=== PATIENT | male | born 1995 | race Caucasian/White ===

== ENCOUNTER 2022-02-10 10:52 | Emergency (ER) | payer BC, SELFPAY ==
--- OUTSIDE RECORDS SUMMARY | 2022-02-10 10:54 | XMS REPORT | Continuity of Care Document ---
:1995 Author Organization [facility] t Address [address] [place] [address] Care Team Providers Name Role Phone Sadanala_U Attending Clinician Unavailable Bui_Q_WAGDNU Attending Clinician Unavailable Bui_Q Attending Clinician Unavailable Sadanala_U Admitting Clinician Unavailable Bui_Q_WAGDNU Admitting Clinician Unavailable Bui_Q Admitting Clinician Unavailable Payers Payer Name Policy Type Policy Number Effective Date Expiration Date [place] [id number] 2019 00:00:00 [place] Problems This patient has no known problems. Allergies, Adverse Reactions, Alerts Allergy Allergy Status Severity Reaction(s) Onset Inactive Treating Comm ents Source Name Type Date Date Clinician Codeine Allergy Active [place] [facility] e SULFA Allergy Active [place] [facility] (SULFONA to Family MIDE substanc Practic ANTIBIOT e e ICS) Social History Smoking Status Start Date Stop Date Source Current Some Day Smoker [facility] Medications Ordered Filled Start Stop Current Ordering Indication Dosage Frequency Signature Comments Components Source Medication Medication Date Date Medication? Clinician (SIG) Name Name Flonase Flonase No 2spray( BID Flonase Harshad kermit Allergy Allergy s) Allergy Family Relief 50 Relief 50 Relief 50 Practic mcg/actuati mcg/actuati mcg/actuat e on nasal on nasal ion nasal spray,suspe spray,suspe spray,susp nsion [place] nsion [place] ension 2 sprays 2 sprays [place] 2 twice a day twice a day sprays by by twice a intranasal intranasal day by route. route. intranasal route. Vital Signs Vital Name Observation Time Observation Value Comments Source BP Diastolic 2021-12-08 00:00:00 86 mm[Hg] [facility] Height 2021-12-08 00:00:00 70 [in_i] [facility] BMI (Body Mass 2021-12-08 00:00:00 17.5 kg/m2 [facility] Family Index) Practice BP Systolic 2021-12-08 00:00:00 122 mm[Hg] [facility] Body Weight 2021-12-08 00:00:00 122 [lb_av] [facility] BP Diastolic 2021-07-27 00:00:00 88 mm[Hg] [facility] Height 2021-07-27 00:00:00 70 [in_i] [facility] BMI (Body Mass 2021-07-27 00:00:00 17.8 kg/m2 [facility] Family Index) Practice BP Systolic 2021-07-27 00:00:00 124 mm[Hg] [facility] Body Weight 2021-07-27 00:00:00 124.4 [lb_av] [facility] Height 2020-11-23 00:00:00 70 [in_i] [facility] BMI (Body Mass 2020-11-23 00:00:00 17.6 kg/m2 [facility] Family Index) Practice BP Systolic 2020-11-23 00:00:00 113 mm[Hg] [facility] Body Weight 2020-11-23 00:00:00 123 [lb_av] [facility] Practice BP Diastolic 2020-11-23 00:00:00 79 mm[Hg] [facility] BP Diastolic 2019-02-08 00:00:00 62 mm[Hg] [facility] Height 2019-02-08 00:00:00 70 [in_i] [facility] Practice BMI (Body Mass 2019-02-08 00:00:00 17.5 kg/m2 [facility] Family Index) Practice BP Systolic 2019-02-08 00:00:00 122 mm[Hg] [facility] Practice Body Weight 2019-02-08 00:00:00 121.8 [lb_av] [facility] Practice Procedures Procedure Date / Time Performed Performing Clinician Sour e X-RAY OF KNEE 3 VIEW 2019-02-08 00:00:00 [facility] MRI, knee, w/o 2019-02-08 00:00:00 [facility] ly contrast Practice Hernia Repair [facility] Plan of Care Planned Activity Planned Date Details Comments Source Diagnostic Test 2021-12-08 rapid influenza virus Harshad kermit Family Pending 00:00:00 A + B and SARS CoV + Practic e SARS CoV 2 Ag panel, [place], upper respiratory specimen [code = rapid influenza virus A + B and SARS CoV + SARS CoV 2 Ag panel, [place], upper respiratory specimen] Diagnostic Test 2021-12-08 rapid strep group A, [facility] Family Pending 00:00:00 throat [code = rapid Practic e strep group A, throat] Encounters Start End Encounter Admission Attending Care Care Encounter Source Date/Time Date/Time Type Type Clinicians Facility Department ID 2021-12-08 2021-12-08 Outpatient Sadanala_U VFP VFP [id number] [facility] 03:31:00 03:31:00 [id number] Family Practic e 2021-12-08 2021-12-08 Outpatient Bui_Q_WAGDN VFP VFP [id number] [facility] 03:31:00 03:31:00 U [id number] Family Practic e 2021-12-08 2021-12-08 Christine Correa VF [place] - [id number] 0 [facility] 00:00:00 00:00:00 Ruddy [facility] Evette العلي MD: [id number] [facility] - Pract [address] ([place] [address] , Ph. 2021-08-14 2021-08-14 Outpatient Bui_Q VFP VFP [id number] [facility] 06:22:00 06:22:00 [id number] Family Practic e 2021-08-03 2021-08-03 Outpatient Bui_Q_WAGDN VFP VFP [id number] [facility] 01:51:00 01:51:00 U [id number] Family Practic e 2021-07-27 2021-07-27 Outpatient Bui_Q VFP VFP [id number] [facility] 11:32:00 11:32:00 [id number] Family Practic e 2021-07-27 2021-07-27 Sky Wesley VF [place] - [id number] 7 [facility] 00:00:00 00:00:00 MD Jena: Rogelio Famil y [address] [address], ([place] [address] , Ph. 2020-12-08 2020-12-08 Outpatient Bui_Q_WAGDN VFP VFP [id number] [facility] 01:26:00 01:26:00 U [id number] Family Practic e 2020-11-27 2020-11-27 Outpatient Bui_Q_WAG VFP VFP [id number] [facility] 08:11:00 08:11:00 [id number] Family Practic e 2020-11-27 2020-11-27 Outpatient Bui_Q VFP VFP [id number] [facility] 08:11:00 08:11:00 [id number] Family Practic e 2020-11-23 2020-11-23 Outpatient Bui_Q_WAG VFP VFP [id number] [facility] 10:49:00 10:49:00 [id number] Family Practic e 2020-11-23 2020-11-23 Kiranchand VFP [place] - [id number] 5 [facility] 00:00:00 00:00:00 ra [facility] - [facility] [place] MD: VM_HOU_[place] e [address] [facility] ([facility], [address], [place] [address] , Ph. 2019-02-08 2019-02-08 [facility] [place] [facility] [id number] 1 [facility] 00:00:00 00:00:00 MD Jena: [facility] Famil y [address] [facility], Practice - e [address], [facility] [address] , Ph. Results Test Description Test Time Test Comments Results Result Comments Source rapid strep group A, throat 2021-12-08 14:21:58 Test Item Value Reference Range Interpretation Comme nts Strep (test code = Strep) [facility] and SARS-CoV+SARS-CoV-2 (COVID- 19) Ag panel - Upper respiratory specimen by Rapid [id number] 14:21:22 Test Item Value Reference Range Interpretation Comments Influenza A (test code = Presumptive Negative Influenza A) Influenza B (test code = Presumptive Negative Influenza B) SARS-CoV-2 Antigen (test Presumptive Negative code = SARS-CoV-2 Antigen) [facility]
[2022-02-10] MEDS ORDERED: NA CHLORIDE 0.9% 1,000 ML ONE (11:23)
--- NOTE | 2022-02-10 11:34 | RAD REPORT ---
EXAM DESCRIPTION: CT - Head Brain Wo Cont - 02/10/2022 11:27 am CLINICAL HISTORY: Syncope COMPARISON: None. TECHNIQUE: Computed axial tomography of the head was obtained. IV contrast was not requested. All CT scans are performed using dose optimization technique as appropriate and may include automated exposure control or mA/KV adjustment according to patient size. FINDINGS: An intracranial bleed is not seen . The ventricles are normal in caliber. No significant hypodense areas within the brain visualized No extra-axial fluid collection is noted. Fluid within the sinuses/ mastoids is not seen. IMPRESSION: No acute intracranial abnormality is seen. If patient's symptoms persist MRI of the bra in would be recommended.
[2022-02-10 11:44] LABS: Absolute Lymphocytes (CBC) 1.2 K/uL (0.7-4.9); Hematocrit 41.5 % (39.6-49.0); Lymphocytes % 16.3 % (15.3-44.8); MPV 8.8 fL (7.6-11.3); RBC Red Blood Cell Count 4.59 M/uL (4.33-5.43)
--- NOTE | 2022-02-10 11:45 | RAD REPORT ---
EXAM DESCRIPTION: Kit Single View02/10/2022 11:32 am CLINICAL HISTORY: Syncope and weakness COMPARISON: none FINDINGS: The lungs are mildly hyperaerated. The lungs appear clear of acute infiltrate. The heart is normal size IMPRESSION: No acute abnormalities displayed
[2022-02-10 11:56] LABS: BUN Blood Urea Nitrogen 13 mg/dL (7-18); Bicarbonate 29 mmol/L (21-32); Glomerular Filtration Rate 121 ml/min (=/>90); Glucose Level 103 mg/dL (74-106); Potassium 3.8 mmol/L (3.5-5.1); Sodium Level 139 mmol/L (136-145)
[2022-02-10 11:58] LABS: Troponin High Sensitivity < 3.0 pg/mL (<58.9)
--- NOTE | 2022-02-10 12:43 | ER ---
Nurse's Notes [facility] Name: Justin Cason Age: 26 yrs Sex: Male : 1995 Arrival Date: 02/10/2022 Time: 10:53 Bed 8 Private MD: Diagnosis: Syncope Near Presentation: 02/10 10:53 Chief complaint: EMS states: Pt was riding in a vehicle when he began to feel ph lightheaded and experience chest pressure. VSS, EKG normal, pt reports that he did have 1 energy drink today but does not drink them daily. Pt states that pain is reproducible, states, " It feels like it's bruised." Reports recent cough. Coronavirus screen: Vaccine status: Patient reports being unvaccinated. Ebola Screen: No symptoms or risks identified at this time. Initial Sepsis Screen: Does the patient meet any 2 criteria? No. Patient's initial sepsis screen is negative. Does the patient have a suspected source of infection? No. Patient's initial sepsis screen is negative. Risk Assessment: Do you want to hurt yourself or someone else? Patient reports no desire to harm self or others. Onset of symptoms was February 10, 2022. 10:53 Method Of Arrival: EMS: [facility] 10:53 Acuity: KYLE 3 ph Triage Assessment: 10:58 General: Appears in no apparent distress. comfortable, slender, well groomed, Behavior ph is calm, cooperative, appropriate for age, Denies fever. Pain: Complains of pain in anterior aspect of left upper chest and mid-sternal area Quality of pain is described as heavy, pressure, Pain began suddenly. Neuro: Level of Consciousness is awake, alert, obeys commands, Oriented to person, place, time, situation. Cardiovascular: Reports chest pain, lightheadedness, Denies nausea, palpitations, vomiting, Capillary refill < 3 seconds in bilateral fingers Patient's skin is warm and dry. Rhythm is regular. Respiratory: Reports cough that is pain with respiration Airway is patent Respiratory effort is even, unlabored, Respiratory pattern is regular, symmetrical. GI: No signs and/or symptoms were reported involving the gastrointestinal system. Derm: Skin is intact, is healthy with good turgor, Skin is pink, warm \\T\\ dry. Musculoskeletal: Circulation, motion, and sensation intact. Range of motion: intact in all extremities. Historical: - Allergies: 10:58 Sulfa (Sulfonamide Antibiotics); ph 10:58 Codeine; ph - Home Meds: 10:58 None [Active]; ph - PMHx: 10:58 None; ph - Immunization history:: Adult Immunizations not immunized. - Social history:: Smoking status: Patient reports the use of cigarette tobacco products, denies chronic smoking, but will smoke occasionally. Screenin:00 Abuse screen: Denies threats or abuse. Denies injuries from another. Nutritional ph screening: No deficits noted. Tuberculosis screening: No symptoms or risk factors identified. Fall Risk None identified. Assessment: 11:00 General: SEE TRIAGE ASSESSMENT. ph 11:47 Reassessment: Patient appears in no apparent distress at this time. Patient and/or ph family updated on plan of care and expected duration. Pain level reassessed. Patient is alert, oriented x 3, equal unlabored respirations, skin warm/dry/pink. 13:12 Reassessment: Patient appears in no apparent distress at this time. Patient and/or ph family updated on plan of care and expected duration. Pain level reassessed. Patient is alert, oriented x 3, equal unlabored respirations, skin warm/dry/pink. Vital Signs: 10:53 BP 130 / 83; Pulse 73; Resp 16; Temp 99.2; Pulse Ox 96% on R/A; Weight 77.11 kg; Height ph 5 ft. 10 in. (177.80 cm); 11:28 BP 125 / 90; Pulse 76; Resp 18; Pulse Ox 100% ; Pain 2/10; jh6 12:30 BP 115 / 80; Pulse 72; Resp 18; Temp 98.2; Pulse Ox 99% on R/A; ph 10:53 Body Mass Index 24.39 (77.11 kg, 177.80 cm) ph ED Course: 10:53 Patient arrived in ED. ph 10:53 Leon Mena MD is Attending Physician. kdr 10:58 Triage completed. ph 10:58 Arm band placed on Patient placed in an exam room, on a stretcher, on monitoring manager, ph on pulse oximetry. 11:00 Patient has correct armband on for positive identification. Bed in low position. Call ph light in reach. Side rails up X 1. Client placed on continuous cardiac and pulse oximetry monitoring. NIBP monitoring applied. 11:00 Patient maintains SpO2 saturation greater than 95% on room air. ph 11:26 Baylee Westbrook, RN is Primary Nurse. ph 11:[address] via wheelchair. jh6 11:28 CT Head Brain wo Cont In Process Unspecified. EDMS 11:34 XRAY Chest (1 view) In Process Unspecified. EDMS 13:13 No provider procedures requiring assistance completed. IV discontinued, intact, ph bleeding controlled, No redness/swelling at site. Pressure dressing applied, 20 G to LAC per EMS. Administered Medications: 11:20 Drug: NS 0.9% 1000 ml Route: IV; Rate: 1 bolus; Site: left antecubital; [facility] 13:00 Follow up: Response: No adverse reaction; IV Status: Completed infusion; IV Intake: ph 1000ml Medication: 11:00 VIS not applicable for this client. ph Intake: 13:00 IV: 1000ml; Total: 1000ml. ph Outcome: 12:42 Discharge ordered by . [facility] 13:14 Discharged to home ambulatory, with significant other. ph 13:14 Condition: good 13:14 Discharge instructions given to patient, Instructed on discharge instructions, follow up and referral plans. Demonstrated understanding of instructions, follow-up care. 13:14 Patient left the ED. ph Signatures: Dispatcher [employer] Loen Cornelius MD MD kdr Hall, Patricia, RN RN Yohana Zarate RN RN [facility]
--- NOTE | 2022-02-10 12:43 | EDPHYS ---
Physician Documentation [facility] Name: Justin Cason Age: 26 yrs Sex: Male : 1995 Arrival Date: 02/10/2022 Time: 10:53 Bed 8 Private MD: ED Physician Leon Mena HPI: 02/10 13:06 This 26 yrs old Male presents to ER via EMS with complaints of Dizziness, Chest Pain. kdr 13:06 Lightheaded and dizziness and slight chest discomfort.. kdr 13:07 Onset: The symptoms/episode began/occurred suddenly, just prior to arrival. Severity of kdr symptoms: At their worst the symptoms were moderate in the emergency department the symptoms have improved moderately. The patient has not experienced similar symptoms in the past. The patient has not recently seen a physician. Patient was at work this morning when he became lightheaded and dizzy with slight chest discomfort. He denies any change in his morning routine prior to the episode. He is otherwise been healthy in the last few weeks without any other precipitating events. He has not had episodes like this before. Currently he is nontoxic-appearing and not requiring any emergent intervention. Historical: - Allergies: 10:58 Sulfa (Sulfonamide Antibiotics); ph 10:58 Codeine; ph - Home Meds: 10:58 None [Active]; ph - PMHx: 10:58 None; ph - Immunization history:: Adult Immunizations not immunized. - Social history:: Smoking status: Patient reports the use of cigarette tobacco products, denies chronic smoking, but will smoke occasionally. ROS: 13:07 Constitutional: Negative for fever, chills, and weight loss, Eyes: Negative for injury, kdr pain, redness, and discharge, ENT: Negative for injury, pain, and discharge, Neck: Negative for injury, pain, and swelling, Respiratory: Negative for shortness of breath, cough, wheezing, and pleuritic chest pain, Abdomen/GI: Negative for abdominal pain, nausea, vomiting, diarrhea, and constipation, Back: Negative for injury and pain, : Negative for injury, bleeding, discharge, and swelling, MS/Extremity: Negative for injury and deformity, Skin: Negative for injury, rash, and discoloration, Psych: Negative for depression, anxiety, suicide ideation, homicidal ideation, and hallucinations, Allergy/Immunology: Negative for hives, rash, and allergies, Endocrine: Negative for neck swelling, polydipsia, polyuria, polyphagia, and marked weight changes, Hematologic/Lymphatic: Negative for swollen nodes, abnormal bleeding, and unusual bruising. 13:07 Cardiovascular: Positive for chest pain, of the mid-sternal area. 13:07 Neuro: Positive for dizziness. Exam: 13:07 Constitutional: This is a well developed, well nourished patient who is awake, alert, kdr and in no acute distress. Head/Face: Normocephalic, atraumatic. Eyes: Pupils equal round and reactive to light, extra-ocular motions intact. Lids and lashes normal. Conjunctiva and sclera are non-icteric and not injected. Cornea within normal limits. Periorbital areas with no swelling, redness, or edema. Neck: Trachea midline, no thyromegaly or masses palpated, and no cervical lymphadenopathy. Supple, full range of motion without nuchal rigidity, or vertebral point tenderness. No Meningismus. Chest/axilla: Normal chest wall appearance and motion. Nontender with no deformity. No lesions are appreciated. Cardiovascular: Regular rate and rhythm with a normal S1 and S2. No gallops, murmurs, or rubs. Normal PMI, no JVD. No pulse deficits. Respiratory: Lungs have equal breath sounds bilaterally, clear to auscultation and percussion. No rales, rhonchi or wheezes noted. No increased work of breathing, no retractions or nasal flaring. Abdomen/GI: Soft, non-tender, with normal bowel sounds. No distension or tympany. No guarding or rebound. No evidence of tenderness throughout. Back: No spinal tenderness. No costovertebral tenderness. Full range of motion. Skin: Warm, dry with normal turgor. Normal color with no rashes, no lesions, and no evidence of cellulitis. MS/ Extremity: Pulses equal, no cyanosis. Neurovascular intact. Full, normal range of motion. Neuro: Awake and alert, GCS 15, oriented to person, place, time, and situation. Cranial nerves II-XII grossly intact. Motor strength 5/5 in all extremities. Sensory grossly intact. Cerebellar exam normal. Normal gait. Psych: Awake, alert, with orientation to person, place and time. Behavior, mood, and affect are within normal limits. Vital Signs: 10:53 BP 130 / 83; Pulse 73; Resp 16; Temp 99.2; Pulse Ox 96% on R/A; Weight 77.11 kg; Height ph 5 ft. 10 in. (177.80 cm); 11:28 BP 125 / 90; Pulse 76; Resp 18; Pulse Ox 100% ; Pain 2/10; jh6 12:30 BP 115 / 80; Pulse 72; Resp 18; Temp 98.2; Pulse Ox 99% on R/A; ph 10:53 Body Mass Index 24.39 (77.11 kg, 177.80 cm) ph MDM: 12:42 Patient medically screened. kdr 13:07 Data reviewed: vital signs, nurses notes, lab test result(s), EKG, radiologic studies. kdr Counseling: I had a detailed discussion with the patient and/or guardian regarding: the historical points, exam findings, and any diagnostic results supporting the discharge/admit diagnosis, lab results, radiology results, the need for outpatient follow up. ED course: Patient was feeling much better upon arrival. He continued to trend and improve. I was discharged he was more or less back to his baseline. He had no further episodes. He was happy with the care provided the plan for discharge and follow-up.. 02/10 11:15 Order name: Basic Metabolic Panel; Complete Time: 12: [facility] 02/10 11:15 Order name: CBC with Diff; Complete Time: 12: [facility] 02/10 11:15 Order name: Troponin HS; Complete Time: 12:34 [facility] 02/10 11:15 Order name: XRAY Chest (1 view); Complete Time: 12: [facility] 02/10 11:16 Order name: CT Head Brain wo Cont; Complete Time: 12: [facility] 02/10 11:15 Order name: EKG; Complete Time: 11:16 [facility] 02/10 11:15 Order name: Cardiac monitoring; Complete Time: 11:16 [facility] 02/10 11:15 Order name: EKG - Nurse/Tech; Complete Time: 11: [facility] 02/10 11:15 Order name: IV Saline Lock; Complete Time: 11:16 [facility] 02/10 11:15 Order name: Labs collected and sent; Complete Time: 11: [facility] 02/10 11:15 Order name: O2 Per Protocol; Complete Time: 11: [facility] 02/10 11:15 Order name: O2 Sat Monitoring; Complete Time: 11:16 kdr Administered Medications: 11:20 Drug: NS 0.9% 1000 ml Route: IV; Rate: 1 bolus; Site: left antecubital; jh6 13:00 Follow up: Response: No adverse reaction; IV Status: Completed infusion; IV Intake: ph 1000ml Disposition Summary: 02/10/22 12:42 Discharge Ordered Location: Home kdr Problem: new kdr Symptoms: have improved kdr Condition: Stable kdr Diagnosis - Syncope Near kdr Followup: kdr - With: Private Physician - When: 2 - 3 days - Reason: If symptoms return, Further diagnostic work-up, Recheck today's complaints, Continuance of care, Re-evaluation by your physician Discharge Instructions: - Discharge Summary Sheet kdr - Near-Syncope, [id number] kdr Forms: - Medication Reconciliation Form kdr - Thank You Letter kdr - Work release form jh6 Signatures: Dispatcher [employer] Leon Cornelius MD MD kdr Hall, Patricia RN SARIAH Yohana Zarate RN RN jh6
[2022-02-10 13:26] VITALS: BP 115/80; TEMP 98.2; O2SAT 99
--- NOTE | 2022-02-12 17:34 | EKG ---
Test Date: 2022-02-10 Test Time: 10:50:24 Senior Research Project Manager: YOSEF MEASUREMENT RESULTS: Intervals: Rate: 70 RI: 118 QRSD: 94 QT: 384 QTc: 414 [place]: P: 77 RI: 118 QRS: 88 T: 68 INTERPRETIVE STATEMENTS: Normal sinus rhythm Normal ECG No previous ECG available for comparison Electronically Signed On 02-12-22 17:30:19 CDT by Rafael Steel
== END 2022-02-10 13:14 | disposition home or self-care (01) ==
LOC: ER 10:52
DX: R55 Syncope and collapse (principal); F17.210 Nicotine dependence, cigarettes, uncomplicated; Z88.2 Allergy status to sulfonamides; Z88.5 Allergy status to narcotic agent
CPT/HCPCS: 36415; 70450; 71045; 80048; 84484; 85025; 93005; 96360; 96361; 99285; J7030

== ENCOUNTER 2022-06-20 06:40 | Emergency (ER) | payer BC ==
--- OUTSIDE RECORDS SUMMARY | 2022-06-20 06:44 | XMS REPORT | Continuity of Care Document ---
:1995 Author Organization [facility] t Address [address] [place] [address] Care Team Providers Name Role Phone Sadanala_U Attending Clinician Unavailable Bui_Q_WAGDNU Attending Clinician Unavailable Bui_Q Attending Clinician Unavailable Sadanala_U Admitting Clinician Unavailable Bui_Q_WAGDNU Admitting Clinician Unavailable Bui_Q Admitting Clinician Unavailable Payers Payer Name Policy Type Policy Number Effective Date Expiration Date [place] [employer] [id number] 2019 00:00:00 [place] Problems This patient has no known problems. Allergies, Adverse Reactions, Alerts Allergy Allergy Status Severity Reaction(s) Onset Inactive Treating Comm ents Source Name Type Date Date Clinician Codeine Allergy Active [place] [facility] e SULFA Allergy Active Edema [facility] (SULFONA to Family MIDE substanc Practic ANTIBIOT e e ICS) Social History Smoking Status Start Date Stop Date Source Current Some Day Smoker [facility] Medications Ordered Filled Start Stop Current Ordering Indication Dosage Frequency Signature Comments Components Source Medication Medication Date Date Medication? Clinician (SIG) Name Name Flonase Flonase No 2spray( BID Flonase Harshad kermit Allergy Allergy s) Allergy Family Relief 50 Relief 50 Relief 50 Practic mcg/actuati mcg/actuati mcg/actuat e on nasal on nasal ion nasal spray,suspe spray,suspe spray,susp nsion Bacova nsion Bacova ension 2 sprays 2 sprays Bacova 2 twice a day twice a day sprays by by twice a intranasal intranasal day by route. route. intranasal route. Vital Signs Vital Name Observation Time Observation Value Comments Source BP Diastolic 2021-12-08 00:00:00 86 mm[Hg] [facility] Height 2021-12-08 00:00:00 70 [in_i] [facility] BMI (Body Mass 2021-12-08 00:00:00 17.5 kg/m2 [facility] Index) Practice BP Systolic 2021-12-08 00:00:00 122 mm[Hg] [facility] Body Weight 2021-12-08 00:00:00 122 [lb_av] [facility] BP Diastolic 2021-07-27 00:00:00 88 mm[Hg] [facility] Height 2021-07-27 00:00:00 70 [in_i] [facility] BMI (Body Mass 2021-07-27 00:00:00 17.8 kg/m2 [facility] Practice BP Systolic 2021-07-27 00:00:00 124 mm[Hg] [facility] Body Weight 2021-07-27 00:00:00 124.4 [lb_av] [facility] Height 2020-11-23 00:00:00 70 [in_i] [facility] BMI (Body Mass 2020-11-23 00:00:00 17.6 kg/m2 [facility] Practice BP Systolic 2020-11-23 00:00:00 113 mm[Hg] [facility] Body Weight 2020-11-23 00:00:00 123 [lb_av] [facility] BP Diastolic 2020-11-23 00:00:00 79 mm[Hg] [facility] BP Diastolic 2019-02-08 00:00:00 62 mm[Hg] [facility] Height 2019-02-08 00:00:00 70 [in_i] [facility] BMI (Body Mass 2019-02-08 00:00:00 17.5 kg/m2 [facility] Practice BP Systolic 2019-02-08 00:00:00 122 mm[Hg] [facility] Body Weight 2019-02-08 00:00:00 121.8 [lb_av] [facility] Procedures Procedure Date / Time Performed Performing Clinician [facility] e X-RAY OF KNEE 3 VIEW 2019-02-08 00:00:00 [facility] MRI, knee, w/o 2019-02-08 00:00:00 [facility] Fam ly contrast Practice Hernia Repair [facility] Plan of Care Planned Activity Planned Date [...] 2021-12-08 Outpatient Sadanala_U VFP VFP [id number] [facility] 03:31:00 03:31:00 [id number] Family Practic e 2021-12-08 2021-12-08 Outpatient Bui_Q_WAGDN VFP VFP [id number] [facility] 03:31:00 03:31:00 U [id number] Family Practic e 2021-12-08 2021-12-08 Christine Correa VF [place] - [id number] [facility] 00:00:00 00:00:00 Rogelio Fox MD: [id number] [address], ([place] [address] , Ph. 2021-08-14 2021-08-14 Outpatient Bui_Q VFP VFP [id number] [facility] 06:22:00 06:22:00 [id number] Family Practic e 2021-08-03 2021-08-03 Outpatient Bui_Q_WAGDN VFP VFP [id number] [facility] 01:51:00 01:51:00 U [id number] Family Practic e 2021-07-27 2021-07-27 Outpatient Bui_Q VFP VFP [id number] [facility] 11:32:00 11:32:00 [id number] Family Practic e 2021-07-27 2021-07-27 Sky Wesley [facility] [place] - [id number] [facility] 00:00:00 00:00:00 MD Jena: Rogelio Famil y [address] [address], ([facility]) [place] [address] , Ph. 2020-12-08 2020-12-08 Outpatient Bui_Q_WAGDN VF VF [id number] [facility] 01:26:00 01:26:00 U [id number] Family Practic e 2020-11-27 2020-11-27 Outpatient Bui_Q_WAG VFP VFP [id number] [facility] 08:11:00 08:11:00 [id number] Family Practic e 2020-11-27 2020-11-27 Outpatient Bui_Q VFP VFP [id number] [facility] 08:11:00 08:11:00 [id number] Family Practic e 2020-11-23 2020-11-23 Outpatient Bui_Q_WAG VFP VF [id number] [facility] 10:49:00 10:49:00 [id number] Family Practic e 2020-11-23 2020-11-23 Kiranchand [facility] [place] - [id number] [facility] 00:00:00 00:00:[address] [facility] Medical - [place] MD: [facility] e [address] [facility], [address] [address] , Ph. 2019-02-08 2019-02-08 [facility] [place] [facility] [id number] [facility] 00:00:00 00:00:00 MD Jena: [facility] Famil y [address] [facility][Note 3], Practice - e [address], [facility] [address] , Ph. Results Test Description Test Time Test Comments Results Result Comments Source rapid strep group A, throat 2021-12-08 14:21:58 Test Item Value Reference Range Interpretation Comme nts Strep (test code = Strep) negative [facility] PracticeInfluenza virus A and B and SARS-CoV+SARS-CoV-2 (COVID- 19) Ag panel - Upper respiratory specimen by Rapid [id number] 14:21:22 Test Item Value Reference Range Interpretation Comments Influenza A (test code = Presumptive Negative Influenza A) Influenza B (test code = Presumptive Negative Influenza B) SARS-CoV-2 Antigen (test Presumptive Negative code = SARS-CoV-2 Antigen) [facility]
[2022-06-20] MEDS ORDERED: ASPIRIN 81 MG CHEWABLE TABLET ONE (07:17)
[2022-06-20] MEDS ORDERED: FAMOTIDINE 20 MG/2 ML VIAL IV ONE (07:17)
[2022-06-20] MEDS ORDERED: NA CHLORIDE 0.9% 500 ML ONE (07:17)
[2022-06-20 07:32] LABS: Absolute Lymphocytes (CBC) 1.6 K/uL (0.7-4.9); Hematocrit 41.1 % (39.6-49.0); Lymphocytes % 42.7 % (15.3-44.8); MCV 90.1 fL (80-100); MPV 8.4 fL (7.6-11.3); RBC Red Blood Cell Count 4.56 M/uL (4.33-5.43)
[2022-06-20 07:37] LABS: Protime INR 1.2
[2022-06-20 07:51] LABS: Bilirubin Direct 0.3 mg/dL (0-0.2); Bilirubin Total 1.2 mg/dL (0.2-1.0); Magnesium 2.2 mg/dL (1.8-2.4); Potassium 4.5 mmol/L (3.5-5.1); Protein, Total 7.1 g/dL (6.4-8.2); Troponin High Sensitivity 3.9 pg/mL (<58.9)
--- NOTE | 2022-06-20 08:17 | RAD REPORT ---
EXAM DESCRIPTION: Kit Single View06/20/2022 8:11 am CLINICAL HISTORY: Chest pain COMPARISON: January 2021 FINDINGS: The lungs appear clear of acute infiltrate. The heart is normal size IMPRESSION: No acute abnormalities displayed
[2022-06-20 09:07] LABS: Blood Morphology Comment NOT SEEN (NOT SEEN); Platelet Estimate ADEQ
[2022-06-20 09:45] LABS: Barbiturates NEGATIVE (NEGATIVE); Benzodiazepines NEGATIVE (NEGATIVE); Cocaine NEGATIVE (NEGATIVE); METHAMPHETAM NEGATIVE (NEGATIVE); Methadone NEGATIVE (NEGATIVE); Opiates NEGATIVE (NEGATIVE); Phencyclidine NEGATIVE (NEGATIVE); THC Cannibis NEGATIVE (NEGATIVE)
--- NOTE | 2022-06-20 09:45 | ER ---
Nurse's Notes [facility] Name: Justin Cason Age: 27 yrs Sex: Male : 1995 Arrival Date: 06/20/2022 Time: 06:43 Bed 5 Private MD: Diagnosis: Chest pain, unspecified Presentation: 06/20 06:55 Chief complaint: Patient states: "For the past three days I have been having chest tw5 pain. It comes and goes. Today I was driving to work when it started. It feels like someone is sitting on my chest, then I feel a jolt of electricity and my hands go numb.". Coronavirus screen: Vaccine status: Patient reports being unvaccinated. Ebola Screen: Patient negative for fever greater than or equal to 101.5 degrees Fahrenheit, and additional compatible Ebola Virus Disease symptoms Patient denies exposure to infectious person. Patient denies travel to an Ebola-affected area in the 21 days before illness onset. Initial Sepsis Screen: Does the patient meet any 2 criteria? No. Patient's initial sepsis screen is negative. Does the patient have a suspected source of infection? No. Patient's initial sepsis screen is negative. Risk Assessment: Do you want to hurt yourself or someone else? Patient reports no desire to harm self or others. Onset of symptoms was June 20, 2022. 06:55 Method Of Arrival: Ambulatory tw5 06:55 Acuity: KYLE 2 tw5 Triage Assessment: 06:58 General: Appears in no apparent distress. slender, Behavior is calm, cooperative, tw5 appropriate for age. Pain: Complains of pain in chest Pain currently is 6 out of 10 on a pain scale. Historical: - Allergies: 06:58 Codeine; tw5 06:58 Sulfa (Sulfonamide Antibiotics); tw5 - Home Meds: 06:58 None [Active]; tw5 - PMHx: 06:58 None; tw5 - PSHx: 06:58 None; tw5 - Immunization history:: Flu vaccine is not up to date. - Social history:: Smoking status: Patient reports the use of cigarette tobacco products, denies chronic smoking, but will smoke occasionally. - Family history:: not pertinent. Screenin:42 Abuse screen: Denies threats or abuse. Denies injuries from another. Nutritional kc6 screening: No deficits noted. Tuberculosis screening: No symptoms or risk factors identified. Fall Risk No fall in past 12 months (0 pts). No secondary diagnosis (0 pts). IV access (20 points). Ambulatory Aid- None/Bed Rest/Nurse Assist (0 pts). Gait- Normal/Bed Rest/Wheelchair (0 pts) Mental Status- Oriented to own ability (0 pts). Total Alanis Fall Scale indicates No Risk (0-24 pts). Assessment: 07:35 General: Appears in no apparent distress. comfortable, Behavior is calm, cooperative, kc6 appropriate for age. Pain: Pain does not radiate. Pain currently is 2 out of 10 on a pain scale. Quality of pain is described as heavy, pressure, Pain began 2-3 days ago. Is continuous, Alleviated by exercise, Aggravated by rest Also complains of nausea, shortness of breath. Neuro: Garcia Agitation-Sedation Scale (RASS): 0 - Alert and Calm Level of Consciousness is awake, alert, obeys commands, Oriented to person, place, time, situation, Appropriate for age. Cardiovascular: Heart tones S1 S2 present Capillary refill < 3 seconds Rhythm is sinus rhythm. Respiratory: Airway is patent Trachea midline Respiratory effort is even, unlabored, Respiratory pattern is regular, symmetrical, Breath sounds are clear bilaterally. GI: Abdomen is flat, non-distended, Reports nausea. : No signs and/or symptoms were reported regarding the genitourinary system. EENT: No signs and/or symptoms were reported regarding the EENT system. Derm: No signs and/or symptoms reported regarding the dermatologic system. Skin is intact, Skin is pink, warm \\T\\ dry. Musculoskeletal: No signs and/or symptoms reported regarding the musculoskeletal system. Circulation, motion, and sensation intact. Capillary refill < 3 seconds, Range of motion: intact in all extremities. 08:52 Reassessment: Patient appears in no apparent distress at this time. No changes from kc6 previously documented assessment. Patient and/or family updated on plan of care and expected duration. Pain level reassessed. Patient is alert, oriented x 3, equal unlabored respirations, skin warm/dry/pink. Patient denies pain at this time. 09:46 Reassessment: Patient appears in no apparent distress at this time. No changes from kc6 previously documented assessment. Patient and/or family updated on plan of care and expected duration. Pain level reassessed. Patient is alert, oriented x 3, equal unlabored respirations, skin warm/dry/pink. Patient denies pain at this time. Vital Signs: 06:55 BP 121 / 84; Pulse 64; Resp 14; Temp 97.8; Pulse Ox 100% ; Weight 58.97 kg; Height 5 tw5 ft. 10 in. (177.80 cm); Pain 6/10; 07:41 BP 111 / 80; Pulse 60; Resp 16 S; Pulse Ox 100% on R/A; Pain 2/10; kc6 08:52 BP 128 / 91; Pulse 67; Resp 21 S; Temp 98.4(O); Pulse Ox 100% on R/A; Pain 0/10; kc6 09:46 BP 116 / 88; Pulse 65; Resp 17 S; Pulse Ox 100% on R/A; Pain 0/10; kc6 06:55 Body Mass Index 18.65 (58.97 kg, 177.80 cm) tw5 ED Course: 06:43 Patient arrived in ED. bp1 06:54 Mikhail Garcia MD is Attending Physician. shani 06:58 Triage completed. tw5 06:58 Arm band placed on. tw5 07:07 Veena Tilley, SARIAH is Primary Nurse. kc6 07:15 Inserted saline lock: 20 gauge in left antecubital area, using aseptic technique. Blood jd3 collected. 07:15 EKG done, by ED staff, reviewed by Leon Mena MD. jd3 07:17 Attending Physician role handed off by Mikhail Garcia MD kdr 07:17 Leon Mena MD is Attending Physician. kdr 07:34 Lipase Sent. kc6 07:34 Basic Metabolic Panel Sent. kc6 07:34 CBC with Diff Sent. kc6 07:34 LFT's Sent. kc6 07:34 Magnesium Sent. kc6 07:34 NT PRO-BNP Sent. kc6 07:34 PT-INR Sent. kc6 07:34 Troponin HS Sent. kc6 08:13 XRAY Chest (1 view) In Process Unspecified. EDMS 10:03 No provider procedures requiring assistance completed. IV discontinued, intact, kc6 bleeding controlled, No redness/swelling at site. Pressure dressing applied. Patient maintains SpO2 saturation greater than 95% on room air. 10:04 Patient has correct armband on for positive identification. Placed in gown. Bed in low kc6 position. Call light in reach. Client placed on continuous cardiac and pulse oximetry monitoring. NIBP monitoring applied. Administered Medications: 07:29 Drug: Pepcid (famotidine) 20 mg Route: IVP; Site: left antecubital; kc6 08:29 Follow up: Response: No adverse reaction kc6 07:34 Drug: Aspirin Chewable Tablet 324 mg Route: PO; kc6 08:34 Follow up: Response: No adverse reaction kc6 07:35 Drug: NS 0.9% 500 ml Route: IV; Rate: bolus; Site: left antecubital; kc6 08:35 Follow up: Response: No adverse reaction; IV Status: Completed infusion; IV Intake: kc6 500ml Medication: 10:04 VIS not applicable for this client. kc6 Intake: 08:35 IV: 500ml; Total: 500ml. kc6 Outcome: 09:44 Discharge ordered by . kdr 10:03 Discharged to home ambulatory. kc6 10:03 Condition: stable 10:03 Discharge instructions given to patient, Instructed on discharge instructions, follow up and referral plans. Demonstrated understanding of instructions, follow-up care. 10:04 Patient left the ED. kc6 Signatures: Dispatcher [employer] EDMS Mikhail Garcia MD MD cha Rittger, Kevin, MD MD kdr Davies, Jonathon, RN RN jd3 Kati Damon Tiffany tw5 Veena Tilley, SARIAH RN kc6 Corrections: (The following items were deleted from the chart) 07:55 07:35 Cardiovascular: Heart tones S1 S2 present Capillary refill < 3 seconds kc6 kc6 09:47 09:47 Response: No adverse reaction kc6 kc6
--- NOTE | 2022-06-20 09:45 | EDPHYS ---
Physician Documentation [facility] Name: Justin Cason Age: 27 yrs Sex: Male : 1995 Arrival Date: 06/20/2022 Time: 06:43 Bed 5 Private MD: ED Physician Leon Mena HPI: 06/20 07:00 This 27 yrs old Male presents to ER via Ambulatory with complaints of Chest shani Pain. 07:00 The patient or guardian reports chest pain that is located primarily in the substernal shani area, anterior chest wall, bilaterally. The pain does not radiate. Associated signs and symptoms: The patient has no apparent associated signs or symptoms. The chest pain is described as a heaviness, a pressure. Duration: The patient or guardian reports multiple episodes, that wax and wane, with no pattern. Modifying factors: The symptoms are alleviated by nothing. the symptoms are aggravated by nothing. Severity of pain: At its worst the pain was mild in the emergency department the pain is unchanged. The patient has not experienced similar symptoms in the past. Historical: - Allergies: 06:58 Codeine; tw5 06:58 Sulfa (Sulfonamide Antibiotics); tw5 - Home Meds: 06:58 None [Active]; tw5 - PMHx: 06:58 None; tw5 - PSHx: 06:58 None; tw5 - Immunization history:: Flu vaccine is not up to date. - Social history:: Smoking status: Patient reports the use of cigarette tobacco products, denies chronic smoking, but will smoke occasionally. - Family history:: not pertinent. ROS: 07:00 Constitutional: Negative for fever, chills, and weight loss, Eyes: Negative for injury, shani pain, redness, and discharge, ENT: Negative for injury, pain, and discharge, Neck: Negative for injury, pain, and swelling, Respiratory: Negative for shortness of breath, cough, wheezing, and pleuritic chest pain, Abdomen/GI: Negative for abdominal pain, nausea, vomiting, diarrhea, and constipation, Back: Negative for injury and pain, : Negative for injury, bleeding, discharge, and swelling, MS/Extremity: Negative for injury and deformity, Skin: Negative for injury, rash, and discoloration, Neuro: Negative for headache, weakness, numbness, tingling, and seizure, Psych: Negative for depression, anxiety, suicide ideation, homicidal ideation, and hallucinations, Allergy/Immunology: Negative for hives, rash, and allergies, Endocrine: Negative for neck swelling, polydipsia, polyuria, polyphagia, and marked weight changes, Hematologic/Lymphatic: Negative for swollen nodes, abnormal bleeding, and unusual bruising. 07:00 Cardiovascular: Positive for chest pain. Exam: 07:00 Constitutional: This is a well developed, well nourished patient who is awake, alert, shani and in no acute distress. Head/Face: Normocephalic, atraumatic. Eyes: Pupils equal round and reactive to light, extra-ocular motions intact. Lids and lashes normal. Conjunctiva and sclera are non-icteric and not injected. Cornea within normal limits. Periorbital areas with no swelling, redness, or edema. ENT: Nares patent. No nasal discharge, no septal abnormalities noted. Tympanic membranes are normal and external auditory canals are clear. Oropharynx with no redness, swelling, or masses, exudates, or evidence of obstruction, uvula midline. Mucous membranes moist. Neck: Trachea midline, no thyromegaly or masses palpated, and no cervical lymphadenopathy. Supple, full range of motion without nuchal rigidity, or vertebral point tenderness. No Meningismus. Chest/axilla: Normal chest wall appearance and motion. Nontender with no deformity. No lesions are appreciated. Cardiovascular: Regular rate and rhythm with a normal S1 and S2. No gallops, murmurs, or rubs. Normal PMI, no JVD. No pulse deficits. Respiratory: Lungs have equal breath sounds bilaterally, clear to auscultation and percussion. No rales, rhonchi or wheezes noted. No increased work of breathing, no retractions or nasal flaring. Abdomen/GI: Soft, non-tender, with normal bowel sounds. No distension or tympany. No guarding or rebound. No evidence of tenderness throughout. Back: No spinal tenderness. No costovertebral tenderness. Full range of motion. Male : Normal genitalia with no discharge or lesions. Skin: Warm, dry with normal turgor. Normal color with no rashes, no lesions, and no evidence of cellulitis. MS/ Extremity: Pulses equal, no cyanosis. Neurovascular intact. Full, normal range of motion. Neuro: Awake and alert, GCS 15, oriented to person, place, time, and situation. Cranial nerves II-XII grossly intact. Motor strength 5/5 in all extremities. Sensory grossly intact. Cerebellar exam normal. Normal gait. Psych: Awake, alert, with orientation to person, place and time. Behavior, mood, and affect are within normal limits. 07:00 ECG was reviewed by the Attending Physician. Vital Signs: 06:55 BP 121 / 84; Pulse 64; Resp 14; Temp 97.8; Pulse Ox 100% ; Weight 58.97 kg; Height 5 tw5 ft. 10 in. (177.80 cm); Pain 6/10; 07:41 BP 111 / 80; Pulse 60; Resp 16 S; Pulse Ox 100% on R/A; Pain 2/10; kc6 08:52 BP 128 / 91; Pulse 67; Resp 21 S; Temp 98.4(O); Pulse Ox 100% on R/A; Pain 0/10; kc6 09:46 BP 116 / 88; Pulse 65; Resp 17 S; Pulse Ox 100% on R/A; Pain 0/10; kc6 06:55 Body Mass Index 18.65 (58.97 kg, 177.80 cm) tw5 MDM: 06:54 Patient medically screened. shani 07:10 Differential diagnosis: abnormal EKG, acute myocardial infarction, acute pericarditis, shani anxiety, coronary artery disease chest wall pain, Cholelithiasis costochondritis, gastroesophageal reflux disease (GERD), hiatal hernia, pancreatitis, pericarditis, stable angina, thoracic aortic disection, unstable angina. HEART Score: History: Slightly Suspicious (0), ECG: Normal (0), Age: < or = 45 years (0), Risk Factors: No Risk Factors Known (0), Troponin: < or = 1 x Normal Limit (0). The patient's deep vein thrombosis risk score was calculated as follows: Total Score: 0. This patient was found to be at low risk for a deep vein thrombosis by using the Well's assessment criteria. The patient's pulmonary embolism risk score was calculated as follows: Total Score: 0-2 points. This patient was found to be at low risk for a pulmonary embolism by using the Well's assessment criteria. AMINA Risk Score: TOTAL SCORE = 0. Data reviewed: vital signs, nurses notes, lab test result(s), EKG, radiologic studies, CT scan, plain films. Data interpreted: school lunch monitor: rate is 64 beats/min, rhythm is regular, Pulse oximetry: on room air is 100 %. Test interpretation: by ED physician or midlevel provider: ECG, plain radiologic studies. Counseling: I had a detailed discussion with the patient and/or guardian regarding: the historical points, exam findings, and any diagnostic results supporting the discharge/admit diagnosis, lab results, radiology results, the need for outpatient follow up. 09:51 ED course: Patient has been pain-free since his arrival. He is otherwise not had any kdr further complications or concerns. He was discharged in good condition and happy with the care provided the plan for discharge and follow-up. I did advise him to ask his primary care physician if he could have a Holter monitor placed prior to his cardiology visit this next month.. 06/20 06:55 Order name: Basic Metabolic Panel; Complete Time: 07:54 [facility] 06/20 06:55 Order name: CBC with Diff; Complete Time: 09:16 [facility] 06/20 06:55 Order name: LFT's; Complete Time: 07:54 [facility] 06/20 06:55 Order name: Magnesium; Complete Time: 07:54 [facility] 06/20 06:55 Order name: NT PRO-BNP; Complete Time: 07:54 [facility] 06/20 06:55 Order name: PT-INR; Complete Time: 07:54 [facility] 06/20 06:55 Order name: Troponin HS; Complete Time: 07:54 [facility] 06/20 06:55 Order name: XRAY Chest (1 view); Complete Time: 08:41 [facility] 06/20 06:55 Order name: Lipase; Complete Time: 07:54 [facility] 06/20 06:55 Order name: UDS [facility] 06/20 07:46 Order name: Manual Differential; Complete Time: 09:16 EDMS 06/20 08:42 Order name: Troponin High Sensitivity; Complete Time: 09:44 [facility] 06/20 06:55 Order name: EKG; Complete Time: 06:57 [facility] 06/20 06:55 Order name: Cardiac monitoring; Complete Time: 07:12 [facility] 06/20 06:55 Order name: EKG - Nurse/Tech; Complete Time: 07:12 [facility] 06/20 06:55 Order name: IV Saline Lock; Complete Time: 07:34 [facility] 06/20 06:55 Order name: Labs collected and sent; Complete Time: : [facility] 06/20 06:55 Order name: O2 Per Protocol; Complete Time: : [facility] 06/20 06:55 Order name: O2 Sat Monitoring; Complete Time: : [facility] EC:00 Rate is 60 beats/min. Rhythm is regular. QRS [place] is Normal. ID interval is normal. QRS shani interval is normal. QT interval is normal. No Q waves. T waves are Normal. No ST changes noted. Clinical impression: NSR w/ Non-specific ST/T Changes and No evidence of ischemia. Interpreted by me. Reviewed by me. Administered Medications: : Drug: Pepcid (famotidine) 20 mg Route: IVP; Site: left antecubital; kc6 08:29 Follow up: Response: No adverse reaction kc6 07:34 Drug: Aspirin Chewable Tablet 324 mg Route: PO; kc6 08:34 Follow up: Response: No adverse reaction 6 07:35 Drug: NS 0.9% 500 ml Route: IV; Rate: bolus; Site: left antecubital; kc6 08:35 Follow up: Response: No adverse reaction; IV Status: Completed infusion; IV Intake: kc6 500ml Disposition Summary: 06/20/22 09:44 Discharge Ordered Location: Home kdr Problem: new kdr Symptoms: have improved kdr Condition: Stable kdr Diagnosis - Chest pain, unspecified kdr Followup: kdr - With: Private Physician - When: 2 - 3 days - Reason: If symptoms return, Further diagnostic work-up, Recheck today's complaints, Continuance of care, Re-evaluation by your physician Discharge Instructions: - Discharge Summary Sheet kdr - Nonspecific Chest Pain, Adult kdr Forms: - Medication Reconciliation Form kdr - Thank You Letter kdr - Work release form kc6 Signatures: Dispatcher [employer] Mikhail Goins MD MD cha Rittger, Kevin, MD MD kdr Wood, Tiffany tw5 Veena Tilley RN RN kc6
[2022-06-20 10:21] VITALS: O2SAT 100
[2022-06-20 10:24] VITALS: TEMP 98.4
[2022-06-20 10:25] VITALS: BP 116/88
--- NOTE | 2022-06-23 06:07 | EKG ---
Test Date: 2022-06-20 Test Time: 07:22:48 Military Technology Manager: RJ MEASUREMENT RESULTS: Intervals: Rate: 60 DE: 128 QRSD: 92 QT: 390 QTc: 390 Cameron: P: 76 DE: 128 QRS: 80 T: 66 INTERPRETIVE STATEMENTS: Normal sinus rhythm Early repolarization Normal ECG Compared to ECG 02/10/2022 10:50:24 Early repolarization now present Electronically Signed On 06-23-22 06:00:39 CDT by Gustavo Joyce
== END 2022-06-20 10:04 | disposition home or self-care (01) ==
LOC: ER 06:40
DX: R07.89 Other chest pain (principal); Z88.0 Allergy status to penicillin; Z88.5 Allergy status to narcotic agent
CPT/HCPCS: 96361; 93005; 85025; 80048; 36415; 83735; 85610; 80076; 84484 ×2; 83690; 83880; 80307; 71045; 96374; 99285; J7040

== ENCOUNTER 2022-07-15 20:18 | Emergency (ER) | payer BC ==
--- OUTSIDE RECORDS SUMMARY | 2022-07-15 20:37 | XMS REPORT | Continuity of Care Document ---
:1995 Author Organization [facility] t Address [address] [place] [address] Care Team Providers Name Role Phone Sadanala_U Attending Clinician Unavailable Bui_Q_WAGDNU Attending Clinician Unavailable Bui_Q Attending Clinician Unavailable Sadanala_U Admitting Clinician Unavailable Bui_Q_WAGDNU Admitting Clinician Unavailable Bui_Q Admitting Clinician Unavailable Payers Payer Name Policy Type Policy Number Effective Date Expiration Date S [place]: [place] [id number] 2019 00:00:00 [place] Problems This patient has no known problems. Allergies, Adverse Reactions, Alerts Allergy Allergy Status Severity Reaction(s) Onset Inactive Treating Comm ents Source Name Type Date Date Clinician Codeine Allergy Active [place] [facility] e e SULFA Allergy Active [place] [facility] ([place] to Family MIDE substanc Practic ANTIBIOT e e ICS) Social History Smoking Status Start Date Stop Date Source Current Some Day Smoker [facility] Medications Ordered Filled Start Stop Current Ordering Indication Dosage Frequency Signature Comments Components Source Medication Medication Date Date Medication? Clinician (SIG) Name Name Flonase Flonase No 2spray( BID Flonase Harshad kermit Allergy Allergy s) Allergy Family Relief 50 Relief 50 Relief 50 Practic mcg/actuati mcg/actuati mcg/actuat e on nasal on nasal ion nasal spray,suspe spray,suspe spray,susp nsion [place] nsion [place] ension 2 sprays 2 sprays [place] 2 twice a day twice a day sprays by by twice a intranasal intranasal day by route. route. intranasal route. Vital Signs Vital Name Observation Time Observation Value Comments Source BP Diastolic 2021-12-08 00:00:00 86 mm[Hg] [facility] Height 2021-12-08 00:00:00 70 [in_i] [facility] BMI (Body Mass 2021-12-08 00:00:00 17.5 kg/m2 [facility] BP Systolic 2021-12-08 00:00:00 122 mm[Hg] [facility] Body Weight 2021-12-08 00:00:00 122 [lb_av] [facility] BP Diastolic 2021-07-27 00:00:00 88 mm[Hg] [facility] Height 2021-07-27 00:00:00 70 [in_i] [facility] BMI (Body Mass 2021-07-27 00:00:00 17.8 kg/m2 [facility] BP Systolic 2021-07-27 00:00:00 124 mm[Hg] [facility] Body Weight 2021-07-27 00:00:00 124.4 [lb_av] [facility] Height 2020-11-23 00:00:00 70 [in_i] [facility] BMI (Body Mass 2020-11-23 00:00:00 17.6 kg/m2 [facility] BP Systolic 2020-11-23 00:00:00 113 mm[Hg] [facility] Body Weight 2020-11-23 00:00:00 123 [lb_av] [facility] BP Diastolic 2020-11-23 00:00:00 79 mm[Hg] [facility] BP Diastolic 2019-02-08 00:00:00 62 mm[Hg] [facility] Height 2019-02-08 00:00:00 70 [in_i] [facility] BMI (Body Mass 2019-02-08 00:00:00 17.5 kg/m2 [facility] BP Systolic 2019-02-08 00:00:00 122 mm[Hg] [facility] Body Weight 2019-02-08 00:00:00 121.8 [lb_av] [facility] Procedures Procedure Date / Time Performed Performing Clinician [facility] e X-RAY OF KNEE 3 VIEW 2019-02-08 00:00:00 [facility] MRI, knee, w/o 2019-02-08 00:00:00 [facility] Fam ly contrast Practice Hernia Repair [facility] Plan of Care Planned Activity Planned [...] 2021-12-08 Outpatient Sadanala_U VFP VFP [id number] [facility] 03:31:00 03:31:00 [id number] Family Practic e 2021-12-08 2021-12-08 Outpatient Bui_Q_WAGDN VFP VFP [id number] [facility] 03:31:00 03:31:00 U [id number] Family Practic e 2021-12-08 2021-12-08 Christine Correa VF [place] - [id number] [facility] 00:00:00 00:00:00 Rogelio Fox MD: [id number] [address], ([place] [address] , Ph. 2021-08-14 2021-08-14 Outpatient Bui_Q VFP VFP [id number] [facility] 06:22:00 06:22:00 [id number] Family Practic e 2021-08-03 2021-08-03 Outpatient Bui_Q_WAGDN VFP VFP [id number] [facility] 01:51:00 01:51:00 U [id number] Family Practic e 2021-07-27 2021-07-27 Outpatient Bui_Q VFP VFP [id number] [facility] 11:32:00 11:32:00 [id number] Family Practic e 2021-07-27 2021-07-27 Sky Wesley [facility] [place] - [id number] [facility] 00:00:00 00:00:00 MD Jena: Rogelio Famil y [address] [address], ([facility]) [place] [address] , Ph. 2020-12-08 2020-12-08 Outpatient Bui_Q_WAGDN VF VF [id number] [facility] 01:26:00 01:26:00 U [id number] Family Practic e 2020-11-27 2020-11-27 Outpatient Bui_Q_WAG VFP VFP [id number] [facility] 08:11:00 08:11:00 [id number] Family Practic e 2020-11-27 2020-11-27 Outpatient Bui_Q VFP VFP [id number] [facility] 08:11:00 08:11:00 [id number] Family Practic e 2020-11-23 2020-11-23 Outpatient Bui_Q_WAG VFP VF [id number] [facility] 10:49:00 10:49:00 [id number] Family Practic e 2020-11-23 2020-11-23 Kiranchand [facility] [place] - [id number] [facility] 00:00:00 00:00:00 ra [facility] - [place] MD: VM_HOU_[facility] e [address] [facility], [address], [place] [address] , Ph. 2019-02-08 2019-02-08 [facility] [place] [facility] [id number] [facility] 00:00:00 00:00:00 MD Jena: [facility] Famil y [address] [facility], Practice - e [address], [facility] [address] , Ph. Results Test Description Test Time Test Comments Results Result Comments Source rapid strep group A, throat 2021-12-08 14:21:58 Test Item Value Reference Range Interpretation Comme nts Strep (test code = Strep) negative [facility] A and B and SARS-CoV+SARS-CoV-2 (COVID- 19) Ag panel - Upper respiratory specimen by Rapid [id number] 14:21:22 Test Item Value Reference Range Interpretation Comments Influenza A (test code = Presumptive Negative Influenza A) Influenza B (test code = Presumptive Negative Influenza B) SARS-CoV-2 Antigen (test Presumptive Negative code = SARS-CoV-2 Antigen) [facility]
--- NOTE | 2022-07-15 21:09 | RAD REPORT ---
EXAM DESCRIPTION: Kit Single View07/15/2022 9:01 pm CLINICAL HISTORY: Chest pain COMPARISON: May 2022 FINDINGS: The lungs appear clear of acute infiltrate. The heart is normal size IMPRESSION: No acute abnormalities displayed
[2022-07-15] MEDS ORDERED: MAGNES/ALUMIN/SIMET 30ML UCUP ONE (21:48)
[2022-07-15] MEDS ORDERED: FAMOTIDINE 20 MG/2 ML VIAL IV ONE (21:48)
[2022-07-15] MEDS ORDERED: LIDOCAINE VISCOUS 2% SOLN 15 ML UDC ONE (21:48)
--- NOTE | 2022-07-15 22:31 | ER ---
Nurse's Notes [facility] Name: Justin Cason Age: 27 yrs Sex: Male : 1995 Arrival Date: 07/15/2022 Time: 20:20 Bed 7 Private MD: Diagnosis: Chest pain, unspecified;Esophagitis, unspecified Presentation: 07/15 20:24 Chief complaint: Patient states: Having chest pain and SOB along with dizziness, He has kr3 been having same symptoms since January but today they are worse and has been seen here for the same thing without a diagnosis, I have been referred to the physical therapy attendant on last visit. Has appointment with physical therapy attendant and gas usage meter clerk the first week of July. Coronavirus screen: Vaccine status: Patient reports being unvaccinated. Client denies travel out of the [place] in the last 14 days. Ebola Screen: Patient denies travel to an Ebola-affected area in the 21 days before illness onset. Initial Sepsis Screen: Does the patient meet any 2 criteria? No. Patient's initial sepsis screen is negative. Does the patient have a suspected source of infection? No. Patient's initial sepsis screen is negative. Risk Assessment: Do you want to hurt yourself or someone else? Patient reports no desire to harm self or others. Onset of symptoms was July 15, 2022. 20:24 Method Of Arrival: Ambulatory kr3 20:24 Acuity: KYLE 3 kr3 Triage Assessment: 20:30 General: Appears in no apparent distress. uncomfortable, Behavior is calm, cooperative, kr3 appropriate for age. Pain: Complains of pain in chest. Cardiovascular: Reports chest pain, lightheadedness, nausea, palpitations, shortness of breath. Historical: - Allergies: 20:29 Codeine; kr3 20:29 Sulfa (Sulfonamide Antibiotics); kr3 - PMHx: 20:29 Palpitations; kr3 - PSHx: 20:29 hernia repair; kr3 - Immunization history:: Adult Immunizations not up to date. - Social history:: Smoking status: Patient reports the use of cigarette tobacco products, denies chronic smoking, but will smoke occasionally. - Family history:: not pertinent. - Hospitalizations: : No recent hospitalization is reported. Screenin:33 Abuse screen: Denies threats or abuse. Denies injuries from another. Nutritional kd3 screening: No deficits noted. Tuberculosis screening: No symptoms or risk factors identified. Fall Risk None identified. IV access (20 points). Assessment: 22:32 General: Appears in no apparent distress. Behavior is calm, cooperative. Pain: kd3 Complains of pain in chest Pain does not radiate. Pain began gradually. Neuro: Level of Consciousness is awake, alert, obeys commands, Oriented to person, place, time, situation. Cardiovascular: Patient's skin is warm and dry. Respiratory: Airway is patent Trachea midline Respiratory effort is even, unlabored, Respiratory pattern is regular, symmetrical. Vital Signs: 20:24 BP 120 / 103; Pulse 71; Resp 16; Pulse Ox 100% on R/A; kr3 20:31 Weight 56.25 kg; Height 5 ft. 9 in. (175.26 cm); Pain 6/10; kr3 22:15 BP 124 / 64; Pulse 59; Resp 17; Pulse Ox 100% on R/A; kd3 22:34 Temp 98.2(O); kd3 20:31 Body Mass Index 18.31 (56.25 kg, 175.26 cm) kr3 ED Course: 20:20 Patient arrived in ED. bp1 20:25 Hubert Cummins MD is Attending Physician. rn 20:29 Triage completed. kr3 20:30 Arm band placed on right wrist. Patient placed in an exam room, on a stretcher. kr3 21:02 XRAY Chest (1 view) In Process Unspecified. EDMS 21:34 Marissa Queen, SARIAH is Primary Nurse. kd3 22:31 Topher Thao MD is Referral Physician. rn 22:33 Patient has correct armband on for positive identification. Client placed on continuous kd3 cardiac and pulse oximetry monitoring. NIBP monitoring applied. 22:33 No provider procedures requiring assistance completed. Patient maintains SpO2 kd3 saturation greater than 95% on room air. 22:42 IV discontinued, intact, bleeding controlled, No redness/swelling at site. Pressure kd3 dressing applied. Administered Medications: 21:58 Drug: GI Cocktail without - (Maalox Suspension 30 ml, Lidocaine Liquid 2 % 15 kd3 ml) Route: PO; 22:34 Follow up: Response: No adverse reaction; Pain is decreased kd3 21:58 Drug: Pepcid (famotidine) 20 mg Route: IVP; Site: right antecubital; kd3 22:34 Follow up: Response: No adverse reaction; Pain is decreased kd3 Medication: 22:33 VIS not applicable for this client. kd3 Outcome: 22:31 Discharge ordered by . rn 22:33 Discharged to home ambulatory. kd3 22:33 Condition: stable 22:33 Discharge instructions given to patient, family, Instructed on discharge instructions, follow up and referral plans. Demonstrated understanding of instructions, follow-up care. 22:42 Patient left the ED. kd3 Signatures: Dispatcher [employer] EDMS Hubert Cummins MD MD rn Kati Damon Kyli, RN RN kd3 Chely Schwartz RN RN kr3
--- NOTE | 2022-07-15 22:32 | EDPHYS ---
Physician Documentation [facility] Name: Justin Cason Age: 27 yrs Sex: Male : 1995 Arrival Date: 07/15/2022 Time: 20:20 Bed 7 Private MD: ED Physician Hubert Cummins HPI: 07/15 20:48 This 27 yrs old Male presents to ER via Ambulatory with complaints of Chest Pain. rn 20:48 The patient or guardian reports chest pain that is located primarily in the substernal rn area, epigastric area. The pain does not radiate. Associated signs and symptoms: Pertinent negatives: cough, diaphoresis, dizziness, headache, lower extremity swelling, palpitations, shortness of breath, syncope, vomiting. The chest pain is described as burning, a pressure. Duration: The patient or guardian reports multiple episodes, that are intermittent. Modifying factors: The symptoms are alleviated by nothing. the symptoms are aggravated by laying down, food, ETOH. Severity of pain: At its worst the pain was moderate in the emergency department the pain has improved. The patient has experienced similar episodes in the past. The patient has not recently seen a physician. This is 3rd ER visit for chest pain, has a cardiology appt in 2 weeks. Reports substernal pressure/tightness, worse when eating, laying down, and after ETOH. Has been happening for months. Also reports trouble swallowing meats sometimes. No fever/cough/sob. No famhx of early cardiac problems. . Historical: - Allergies: 20:29 Codeine; kr3 20:29 Sulfa (Sulfonamide Antibiotics); kr3 - PMHx: 20:29 Palpitations; kr3 - PSHx: 20:29 hernia repair; kr3 - Immunization history:: Adult Immunizations not up to date. - Social history:: Smoking status: Patient reports the use of cigarette tobacco products, denies chronic smoking, but will smoke occasionally. - Family history:: not pertinent. - Hospitalizations: : No recent hospitalization is reported. ROS: 20:48 Constitutional: Negative for fever, chills, and weight loss, Eyes: Negative for injury, rn pain, redness, and discharge, Neck: Negative for injury, pain, and swelling, Cardiovascular: Negative for palpitations, and edema Respiratory: Negative for shortness of breath, cough, wheezing, and pleuritic chest pain, Abdomen/GI: Negative for abdominal pain, nausea, vomiting, diarrhea, and constipation, Back: Negative for injury and pain, MS/Extremity: Negative for injury and deformity, Skin: Negative for injury, rash, and discoloration, Neuro: Negative for headache, weakness, numbness, tingling, and seizure. Exam: 20:48 Constitutional: This is a well developed, well nourished patient who is awake, alert, rn and in no acute distress. Head/Face: Normocephalic, atraumatic. Eyes: Periorbital areas with no swelling, redness, or edema. Cardiovascular: Regular rate and rhythm. No pulse deficits. Respiratory: No increased work of breathing, no retractions or nasal flaring. Abdomen/GI: Soft, non-tender Skin: Warm, dry MS/ Extremity: Pulses equal, no cyanosis. Neuro: Awake and alert, GCS 15 21:54 ECG was reviewed by the Attending Physician. rn Vital Signs: 20:24 BP 120 / 103; Pulse 71; Resp 16; Pulse Ox 100% on R/A; kr3 20:31 Weight 56.25 kg; Height 5 ft. 9 in. (175.26 cm); Pain 6/10; kr3 22:15 BP 124 / 64; Pulse 59; Resp 17; Pulse Ox 100% on R/A; kd3 22:34 Temp 98.2(O); kd3 20:31 Body Mass Index 18.31 (56.25 kg, 175.26 cm) kr3 MDM: 20:25 Patient medically screened. rn 20:57 Differential diagnosis: acute pericarditis, chest wall pain, costochondritis, rn esophagitis, gastritis, gastroesophageal reflux disease (GERD), pancreatitis, peptic ulcer disease, pericarditis, pneumothorax. 22:30 Data reviewed: vital signs, nurses notes, old medical records, EKG, and as a result, I rn will discharge patient. Counseling: I had a detailed discussion with the patient and/or guardian regarding: the historical points, exam findings, and any diagnostic results supporting the discharge/admit diagnosis. Response to treatment: the patient's symptoms have markedly improved after treatment, and as a result, I will discharge patient. Special discussion: I discussed with the patient/guardian in detail that at this point there is no indication for admission to the hospital. It is understood, however, that if the symptoms persist or worsen the patient needs to return immediately for re-evaluation. Based on the history and exam findings, there is no indication for further emergent testing or inpatient evaluation. I discussed with the patient/guardian the need to see the scrap crusher for further evaluation of the symptoms. I discussed with the patient/guardian the need to see the logistics clerk for further evaluation of the symptoms. I discussed with the patient/guardian the need to see the primary care provider for further evaluation of the symptoms. ED course: Pt improved, refuses bloodwork, CXR neg, states labs normal last 2 visits and doesn't want blood tests. Recommend GI and cardiology f/u. . 07/15 20:48 Order name: XRAY Chest (1 view); Complete Time: 21:29 rn 07/15 20:48 Order name: EKG; Complete Time: 20:49 rn 07/15 20:48 Order name: Cardiac monitoring; Complete Time: 21:58 rn 07/15 20:48 Order name: EKG - Nurse/Tech; Complete Time: 21:58 rn 07/15 20:48 Order name: IV Saline Lock; Complete Time: 21:58 rn 07/15 20:48 Order name: O2 Per Protocol; Complete Time: 21:59 rn 07/15 20:48 Order name: O2 Sat Monitoring; Complete Time: 21:59 rn EC:54 Rate is 59 beats/min. Rhythm is regular. QRS [place] is Normal. [place] interval is normal. QRS rn interval is normal. QT interval is normal. No Q waves. T waves are Normal. No ST changes noted. Clinical impression: Sinus bradycardia. Interpreted by me. Reviewed by me. Administered Medications: 21:58 Drug: GI Cocktail without - (Maalox Suspension 30 ml, Lidocaine Liquid 2 % 15 kd3 ml) Route: PO; 22:34 Follow up: Response: No adverse reaction; Pain is decreased kd3 21:58 Drug: Pepcid (famotidine) 20 mg Route: IVP; Site: right antecubital; kd3 22:34 Follow up: Response: No adverse reaction; Pain is decreased kd3 Disposition Summary: 07/15/22 22:31 Discharge Ordered Location: Home rn Problem: an ongoing problem rn Symptoms: have improved rn Condition: Stable rn Diagnosis - Chest pain, unspecified rn - Esophagitis, unspecified rn Followup: rn - With: - When: As needed - Reason: Recheck today's complaints, Re-evaluation by your physician Discharge Instructions: - Discharge Summary Sheet rn - Nonspecific Chest Pain, Adult rn - Food Choices for Gastroesophageal Reflux Disease, Adult rn - Esophagitis rn - Gastroesophageal Reflux Disease, Adult rn Forms: - Medication Reconciliation Form rn - Thank You Letter rn - Antibiotic oil burner - Prescription Opioid Use rn Prescriptions: - Protonix 40 mg Oral Tablet - take 1 tablet by ORAL route once daily; 30 tablet; Refills: 0, Product rn Selection Permitted Signatures: Dispatcher [employer] EDHubert España MD MD rn Doucette, Kyli, RN RN kd3 Chely Schwartz RN RN kr3
[2022-07-15 22:46] VITALS: O2SAT 100
[2022-07-15 22:48] VITALS: BP 124/64
[2022-07-15 22:49] VITALS: TEMP 98.2
--- NOTE | 2022-07-18 12:55 | EKG ---
Test Date: 2022-07-15 Test Time: 21:40:02 Assistant Professor Of Mathematics: MUNIR MEASUREMENT RESULTS: Intervals: Rate: 59 RI: 132 QRSD: 96 QT: 402 QTc: 397 [place]: P: 70 RI: 132 QRS: 82 T: 68 INTERPRETIVE STATEMENTS: Sinus bradycardia Otherwise normal ECG Compared to ECG 06/20/2022 07:22:48 Sinus rhythm no longer present Early repolarization no longer present Electronically Signed On 07-18-22 12:50:50 INSTRUCTOR ADJUNCT SURGICAL TECHNICIAN by Rafael Steel
== END 2022-07-15 22:42 | disposition home or self-care (01) ==
LOC: ER 20:18
DX: K20.90 Esophagitis, unspecified without bleeding (principal); F17.210 Nicotine dependence, cigarettes, uncomplicated; Z88.2 Allergy status to sulfonamides; Z88.5 Allergy status to narcotic agent
CPT/HCPCS: 71045; 93005; 96374; 99284